=== PATIENT | male | born 1950 ===

== ENCOUNTER 2021-06-22 11:35 | Day surgery (SDC) | payer OTHER ==
[~2021-06-22] VITALS: Ht 180.3 cm; Wt 99.9 kg
[~2021-06-22 11:35] MED LIST: ASPI81CH PO; EZET10 PO; HYDACE5; LORA2 PO; META400; NAPR550 PO; OXYACE5T PO
[2021-06-22] MEDS ORDERED: ZOCOR20 MG (12:09)
== END 2021-06-22 14:10 | disposition home or self-care (01) ==
LOC: ORSCSDS 11:35
PROVIDERS: Internal Medicine Gastroenterology
PROC: 0DJD8ZZ Inspection of Lower Intestinal Tract, Via Natural or Artificial Opening Endoscopic (ICD-10-PCS; principal; 2021-06-22 13:00)
DX: Z12.11 Encounter for screening for malignant neoplasm of colon (principal); Z86.010 Personal history of colon polyps; K57.30 Diverticulosis of large intestine without perforation or abscess without bleeding; E78.5 Hyperlipidemia, unspecified; I10 Essential (primary) hypertension; Z79.82 Long term (current) use of aspirin; Z79.899 Other long term (current) drug therapy
CPT/HCPCS: J2704; J7120

== ENCOUNTER → 2021-09-26 | Outpatient (CLI) | payer OTHER ==
[~2021-09-26] MED LIST changes: +ZOCOR20 MG
== END | disposition home or self-care (01) ==
LOC: LAB SHORT 15:01 → PLD 15:01
DX: D22.61 Melanocytic nevi of right upper limb, including shoulder (principal)
CPT/HCPCS: 88305

== ENCOUNTER 2022-08-24 08:25 | Day surgery (SDC) | payer OTHER ==
[2022-08-24] VITALS (12 sets, daily range): BP systolic 82–132; BP diastolic 52–91
[~2022-08-24] VITALS: Ht 180.3 cm; Wt 100.2 kg
[~2022-08-24 08:25] MED LIST changes: +CALCIUM PO; +CINNAMON EXTRA500 MG; +COQ1050 MG PO; +DEPO-TESTO200 MG/1 M IM; +FISH OIL PO; +MERIBIN5 MG PO; +MULVITA PO; +SILD50TA PO; +VITAMIN C125 MG PO; +VITAMIN D310 MC4 PO; -ZOCOR20 MG; +ZOCOR20 MG PO
--- NOTE | 2022-08-24 09:23 | NUR ---
Ambulatory in [facility] warming gown applied. Surgical site prepped with 2% Chlorhexidine cloth wipe. History, Chart, Medications and Allergies reviewed before start of procedure.Lungs clear T/O to Auscultation. Patient confirms NPO status and agrees with scheduled surgery. Patient States Post-Procedure ride home has been arranged. Patient reports completing Chlorhexadine shower X2 prior to admission to hospital.
--- NOTE | 2022-08-24 12:10 | NUR ---
Dressing to procedure site clean, dry, intact with no visible drainage, swelling, erythema or bruising noted. Patient States Post-Procedure ride home has been arranged. Discharge instructions reviewed with patient. Patient verbalizes understanding. Copy given to patient to take home. Discharged via wheelchair to private car for ride home.
== END 2022-08-24 12:13 | disposition home or self-care (01) ==
LOC: ORSCMMR 08:25 → ORD 10:00 → ORSCMMR 12:13
PROVIDERS: Surgery
PROC: 3E0M05Z Introduction of Adhesion Barrier into Peritoneal Cavity, Open Approach (ICD-10-PCS; principal; 2022-08-24 10:00)
PROC: 0WUF0JZ Supplement Abdominal Wall with Synthetic Substitute, Open Approach (ICD-10-PCS; principal; 2022-08-24 10:00)
DX: K42.0 Umbilical hernia with obstruction, without gangrene (principal); K21.9 Gastro-esophageal reflux disease without esophagitis; E78.00 Pure hypercholesterolemia, unspecified; Z79.899 Other long term (current) drug therapy; Z79.82 Long term (current) use of aspirin
CPT/HCPCS: A9270; C1781; J0690; J1100; J1885; J2250; J2405; J2704; J3010; J7120